=== PATIENT | female | born 1990 | race African-American/Black ===

== ENCOUNTER 2016-10-22 23:34 | Emergency (ER) | payer OTHER ==
[2016-10-22 23:40] VITALS: BP 132/71; PULSE 69; TEMP 98.1; BMI 26.5
--- NOTE | 2016-10-22 23:49 | PDOC ---
History of Present Illness - General Chief Complaint: Vaginal Bleeding Stated Complaint: VAG BLEEDING X3 WEEKS Time Seen by Provider: 10/22/16 23:45 - History of Present Illness Initial Comments: This 26-year-old woman presents with 3 week history of vaginal bleeding: In the last 48 hours, she has had more profuse bleeding. Prior to this, bleeding was what the patient would normally have as menstrual flow. Patient states that she normally irregular menstruation. No other history of endometriosis or other gynecologic problems. Patient has not seen her fountain worker in a few years. She attempted to make an appointment with the group that her fountain worker is in and was told that she is on leave. Next available appointment was in January. Patient states that she has been somewhat weaker over the last few days but denies severe lightheadedness , symptoms of orthostatic hypotension, shortness of breath or chest pain. Patient states she has a history of anemia but has never had taken any supplements for this or required any other treatment.. She denies knowledge of what type of anemia she is had Past History - Past Medical History Allergies/Adverse Reactions: Allergies Allergy/AdvReac Type Severity Reaction Status Date / Time No Known Allergies Allergy Verified 11/22/15 10:26 Home Medications: Ambulatory Orders NK [No Known Home Medication] 11/22/15 Other medical history: DENIES - Immunization History Immunization Up to Date: No - Psycho/Social/Smoking Cessation Hx Anxiety: No Suicidal Ideation: No Smoking History: Current every day smoker Number of Cigarettes Smoked Daily: 10 Information on smoking cessation initiated: Yes 'Breaking Loose' booklet given: 10/22/16 Hx Alcohol Use: No Drug/Substance Use Hx: No Substance Use Type: None Review of Systems - Review of Systems Able to Perform ROS?: Yes Comments:: 12 point review of systems is negative except for what is noted in the history of present illness *Physical Exam - Vital Signs Last Vital Signs Temp Pulse Resp BP Pulse Ox 98.1 F 69 16 132/71 100 10/22/16 23:37 10/22/16 23:37 10/22/16 23:37 10/22/16 23:37 10/22/16 23:37 - Physical Exam Comments: GENERAL: Adult female, alert and oriented 3, in no acute distress Vital signs: Blood pressure 132/71, heart rate 69, oxygen saturation 100% on room air HEAD: Normal with no signs of trauma. EYES: PERRLA, EOMI, sclera anicteric, conjunctiva clear. ENT: Ears normal, nares patent, oropharynx clear without exudates. Moist mucous membranes; pink without evidence of pallor NECK: Normal range of motion, supple without lymphadenopathy, JVD, or masses. LUNGS: Breath sounds equal, clear to auscultation bilaterally. No wheezes, and no crackles. HEART:Regular rate and rhythm, normal S1 and S2 without murmur, rub or gallop. ABDOMEN:.normal bowel sounds No guarding,tenderness or rebound.No masses No distention. EXTREMITIES: Normal range of motion, no edema. No clubbing or cyanosis. No erythema, or tenderness. NEUROLOGICAL: Cranial nerves II through XII grossly intact. Normal speech. No focal neurological deficits. MUSCULOSKELETAL: Back non-tender to palpation, no CVA tenderness SKIN: Warm, Dry, normal turgor, no rashes or lesions noted. Progress Note - Progress Note Progress Note: this 26-year-old woman presents with approximately 3 weeks of vaginal bleeding and one day of more severe bleeding. No history of menorrhagia in the past; no history of gynecologic issues which may present with menorrhagia. Although she has had some cramping intermittently, she has had no steady discomfort. She denies significant lightheadedness and does not have increase in dizziness/ lightheadedness with change in position. She has had no history of palpitations /shortness of breath or chest pain. Although she states she has history of anemia, she has never used an iron supplementation or needed any other treatment of the anemia. She is unaware of what type of anemia she has. Vital signs are as noted that evidence of tachycardia or hypotension Conjunctiva and oral mucous membranes show no evidence of pallor It was proposed to the patient that she have blood count evaluated tonight; the patient states that she did not want to wait the approximate2 hours until the results would be available. Since there is no evidence of critical anemia/ hypovolemia currently, there is no urgent need for her to wait. Her most immediate need is consultation with a fountain worker. Since the group that she has consult with before cannot see her for over 3 months, it is in her own best interest to find a new gynecology group Since there is no direct general fountain worker on service call for [facility], patient was given referral information for the [facility] gynecology group out of [facility] as well as the [facility] group also out of [facility]. Patient states that she will call the offices tomorrow and see if they accept her insurance. Meanwhile, patient will return to the ER if she has worsening of her lightheadedness or experiences extreme weakness/palpitations/shortness of breath /chest pain. Patient understands issues and plan. All questions were answered and patient agrees with the plan. *DC/Admit/Observation/Transfer Diagnosis at time of Disposition: Menometrorrhagia - Discharge Dispostion Disposition: HOME Condition at time of disposition: Stable - Referrals Referrals: Frandy Man MD [Staff Physician] - - Patient Instructions Printed Discharge Instructions: DI for Menorrhagia Additional Instructions: rest/avoid strenuous exercise eat regular meals continue ibuprofen as needed call gynecology group in AM to arrange followup in near future return to ER if you experience severe lightheadedness/chest pain/shortness of breath
[2016-10-22 23:53] LABS: PH,URINE 5.5 (4.5-8); URINE APPEARANCE Cloudy; URINE BILIRUBIN Negative (NEGATIVE); URINE GLUCOSE (UA) Negative (NEGATIVE); URINE KETONE Negative (NEGATIVE); URINE LEUK ESTERASE Trace (NEGATIVE); URINE NITRITE Negative (NEGATIVE); URINE PROTEIN Trace (NEGATIVE); URINE UROBILINOGEN 0.2 E.U/dl (0.2-1.0)
[2016-10-22 23:54] LABS: URINE BLOOD 3+ (NEGATIVE); URINE COLOR PINK
[2016-10-22 23:56] LABS: URINE BACTERIA MODERATE /hpf (NEGATIVE); URINE RBC MANY /hpf (0-3)
== END 2016-10-23 00:39 | disposition home or self-care (01) ==
LOC: FER 23:34
DX: N92.1 Excessive and frequent menstruation with irregular cycle (principal)
CPT/HCPCS: 81003; 81015; 84703; 99282-25